=== PATIENT | female | born 1945 | race Caucasian/White ===

== ENCOUNTER → 2017-02-01 | Outpatient (CLI) | payer MEDICARE, OTHER | END | disposition home or self-care (01) | LOC: GMAB 10:54 | PROVIDERS: ATTEND Family Medicine | DX: I10 Essential (primary) hypertension (principal) ==

== ENCOUNTER → 2017-02-08 | Outpatient (CLI) | payer MEDICARE, OTHER ==
--- NOTE | 2017-02-09 08:29 | US ---
EXAM DESCRIPTION: Gall Bladder. Gallbladder ultrasound. CLINICAL HISTORY: RUQ PAIN COMPARISON: None. TECHNIQUE: Routine sonographic images of the right upper quadrant of the abdomen were acquired and submitted for review. FINDINGS: Liver: The liver is normal in size at 15.2 cm. It demonstrates diffusely increased echogenicity. It contains a 1.3 cm septated cyst in the right lobe. Bile ducts- Intrahepatic and extrahepatic bile ducts not dilated with common bile duct measuring 6 mm. Gallbladder: Normal without sludge, calculi, or polyps. The gallbladder wall is normal. Pancreas: The pancreas is not seen due to overlying bowel gas. Ascites: none IMPRESSION: 1. Normal sonographic appearance of the gallbladder. 2. Hepatic steatosis. 3. Septated cyst in the right hepatic lobe. Electronically signed by: Karthikeyan Porter MD 02/09/2017 8:28 AM CDT
== END | disposition home or self-care (01) ==
LOC: US 09:51
PROVIDERS: ATTEND Family Medicine
DX: K76.89 Other specified diseases of liver (principal); R10.33 Periumbilical pain; R10.13 Epigastric pain; K76.0 Fatty (change of) liver, not elsewhere classified

== ENCOUNTER → 2017-02-20 | Outpatient (CLI) | payer MEDICARE, OTHER ==
--- NOTE | 2017-02-20 10:35 | RAD ---
EXAM DESCRIPTION: Shoulder,Right 2 or More Views CLINICAL HISTORY: 71 years Female, PAIN IMPRESSION: 4 views of the right shoulder reveal degenerative change of the acromioclavicular joint with osteophyte formation. Degenerative change along the inferior margin of the glenohumeral joint. Small osteophytes noted along the margin of the greater tuberosity which can be seen in setting of rotator cuff tear. No fracture noted on today's study. No dislocation. Electronically signed by: Terry Barrios MD 02/20/2017 10:34 AM CDT
== END | disposition home or self-care (01) ==
LOC: RAD 09:41
PROVIDERS: ATTEND Orthopaedic Surgery
DX: M25.511 Pain in right shoulder (principal)

== ENCOUNTER → 2018-02-05 | Outpatient (CLI) | payer MEDICARE, OTHER | LOC: GMAB 11:52 | PROVIDERS: ATTEND Family Medicine | DX: I10 Essential (primary) hypertension (principal) ==

== ENCOUNTER → 2018-03-09 | Outpatient (CLI) | payer MEDICARE, OTHER ==
--- NOTE | 2018-03-12 08:20 | US ---
THYROID ULTRASOUND CLINICAL INFORMATION: Abnormal thyroid findings. TECHNIQUE: Standard transcutaneous scanning, two-dimensional and Doppler modes. Attending radiologist study due to patient body habitus. COMPARISON: None. Baseline study. FINDINGS: Thyroid size: Right 3.7 x 2.0 x 1.9 cm. Left 4.0 x 2.2 x 2.2 cm. Isthmus 0.23 cm in thickness. Texture: Heterogeneous Estimated total number of nodules >/=1 cm: 4 Number of spongiform nodules >/=2 cm not described below (TR1): 0 Number of mixed cystic and solid nodules >/=1.5 cm not described below (TR2): 0 Nodule #: 1 Maximum size: 1.5 cm; All dimensions 1.2 x 0.9 cm Location: right; upper Composition: solid/almost completely solid (2) Echogenicity: isoechoic (1) Shape: not [id number] (0) Margins: ill-defined (0) Echogenic foci: none (0) ACR TI-RADS total points: 3. ACR TI-RADS risk category: TR3 (3 points) ACR TI-RADS recommendation: Follow-up ultrasound in 1 year Nodule #: 2 Maximum size: 1.37 cm; All dimensions 1.3 x 1.2 cm Location: right; mid Composition: solid/almost completely solid (2) Echogenicity: very hypoechoic (3) Shape: not pjjpzo-jgre-jkrg (0) Margins: smooth (0) Echogenic foci: none (0) ACR TI-RADS total points: 5. ACR TI-RADS risk category: TR4 (4-6 points) ACR TI-RADS recommendation: Ultrasound-guided fine needle aspiration Nodule #: 3 Maximum size: 1.3 cm; All dimensions 1.0 x 0.8 cm Location: left; lower Composition: solid/almost completely solid (2) Echogenicity: hypoechoic (2) Shape: not irixjh-ocfh-dehn (0) Margins: ill-defined (0) Echogenic foci: none (0) ACR TI-RADS total points: 4. ACR TI-RADS risk category: TR4 (4-6 points) ACR TI-RADS recommendation: Follow-up ultrasound in 1 year Nodule #: 4 Maximum size: 1.7 cm; All dimensions 1.5 x 1.2 cm Location: left; upper Composition: solid/almost completely solid (2) Echogenicity: hypoechoic (2) Shape: not mccqsd-xane-kbrc (0) Margins: smooth (0) Echogenic foci: none (0) ACR TI-RADS total points: 4. ACR TI-RADS risk category: TR4 (4-6 points) ACR TI-RADS recommendation: Ultrasound-guided fine needle aspiration No distinct solid mass or cyst, calcification parenchymal edema or abnormal vascularity in the soft tissues around the thyroid gland. IMPRESSION: 1. Solid hypoechoic 1.7 cm nodule (#4) in the left upper thyroid lobe is in ACR TI RADS risk category TR 4. Due to size and risk category, ultrasound-guided fine-needle aspiration sampling is recommended. Please see below.* 2. Other bilateral thyroid nodules (numbers 1, 2, and 3) are in ACR TI-RADS risk categories TR 4 and TR 3. Due to size and risk category, one year ultrasound follow-up is recommended. 3. No distinct solid mass or cyst, calcification parenchymal edema or abnormal vascularity in the soft tissues around the thyroid gland. *ACR TI-RADS recommendations: TR5 (>/=7 points) - FNA if >/=1 cm, follow-up if 0.5 - 0.9 cm every year for 5 years TR4 (4-6 points) - FNA if >/=1.5 cm, follow-up if 1 - 1.4 cm in 1, 2, 3 and 5 years TR3 (3 points) - FNA if >/=2.5 cm, follow -up if 1.5 - 2.4 cm in 1, 3 and 5 years TR2 (2 points) and TR1 (0 points) - No FNA or follow-up * ACR TI-RADS recommends that no more than two nodules with the highest ACR TI-RADS total point should be biopsied and no more than four nodules should be followed. Electronically signed by: Orville Blair MD 03/12/2018 8:18 AM CDT
== END ==
LOC: US 12:57
PROVIDERS: ATTEND Family Medicine
DX: R94.7 Abnormal results of other endocrine function studies (principal); E04.1 Nontoxic single thyroid nodule

== ENCOUNTER → 2018-04-02 | Outpatient (CLI) | payer MEDICARE, OTHER | LOC: LAB.O 11:18 | PROVIDERS: ATTEND Otolaryngology Otolaryngology/Facial Plastic Surgery | DX: E04.1 Nontoxic single thyroid nodule (principal) ==

== ENCOUNTER 2018-12-27 17:09 | Inpatient (IN) | payer MEDICARE, OTHER ==
[2018-12-27] MEDS ORDERED: IBUPROFEN 200 MG TAB PO ONE (17:43)
[2018-12-27] MEDS ORDERED: METOPROLOL SUCCINATE XL 50 MG TAB PO ONE (17:43)
[2018-12-27] MEDS ORDERED: amLODIPine BESYLATE 5 MG TAB PO ONE (17:43)
[2018-12-27] MEDS ORDERED: IPRATROPIUM/ALBUTEROL 3 ML VIAL NEB ONE (17:43)
[2018-12-27] MEDS ORDERED: CETIRIZINE HCL 10 MG TAB PO ONE (17:44)
[2018-12-27] MEDS ORDERED: OSELTAMIVIR 75 MG CAP PO ONE (17:56)
[2018-12-27] MEDS ORDERED: methylPREDNISolone SODIUM SUC 40 MG/ML VIAL IV ONE (18:37)
[2018-12-27] MEDS ORDERED: cefTRIAXone SODIUM 1 GM in SODIUM CHL 0.9% 50ML MIN-BAG+ 50 ML IVPB ONE (18:37)
[2018-12-27] MEDS ORDERED: AZITHROMYCIN IV 500 MG in SODIUM CHLORIDE 0.9% 250ML 250 ML IVPB ONE (18:37)
[2018-12-27] MEDS ORDERED: POTASSIUM CHLORIDE ELIXIR 20 MEQ/15 ML UD PO ONE (18:38)
[2018-12-27] MEDS ORDERED: AZITHROMYCIN IV 500 MG VIAL IVPB ONE (18:54)
[2018-12-27] MEDS ORDERED: SODIUM CHL 0.9% 50ML MIN-BAG+ 50 ML IVPB ONE (18:54)
[2018-12-27] MEDS ORDERED: cefTRIAXone SODIUM 1 GM VIAL ONE (18:54)
[2018-12-27] MEDS ORDERED: SODIUM CHLORIDE 0.9% 250ML 250 ML ONE (18:55)
--- NOTE | 2018-12-27 19:07 | RAD ---
EXAM DESCRIPTION: Chest,1 View CLINICAL HISTORY: hypoxia, fever COMPARISON: Chest radiograph dated June 18, 2018 TECHNIQUE: Single upright portable frontal view the chest FINDINGS: Cardiac silhouette shows cardiomegaly with borderline central pulmonary vascular congestion an prominent interstitial markings bilaterally. New hazy opacities in the right upper lobe and left retrocardiac region may represent early pulmonary edema versus infectious/inflammatory processes such as pneumonia. Bilateral costophrenic angles are sharp. No pneumothorax. No acute osseous abnormality. IMPRESSION: 1. Cardiomegaly with borderline central pulmonary vascular congestion and prominent interstitial markings bilaterally. New hazy opacities in the right upper lobe and left retrocardiac region may represent early pulmonary edema versus infectious/inflammatory processes such as pneumonia. Electronically signed by: Vu Morales MD 12/27/2018 7:[address] [facility]
--- NOTE | 2018-12-27 19:18 | ED.PDOC ---
History of Present Illness - General Chief Complaint: Respiratory Problem Stated Complaint: cough, congestion Time Seen by Provider: 12/27/18 17:19 Source: patient Exam Limitations: no limitations - History of Present Illness Initial Comments: The patient is a 73-year-old female presenting to the emergency room with shortness of breath, fever and cough for the last day and a half. She is found to be down around 84% on room air with EMS and have a markedly elevated blood pressure 220/120. The patient admits that she did not take her blood pressure medicines this morning. She does feel short of breath. She does have a mild sore throat and has had a headache and body aches. She does have multiple sick contacts in the form of her grandchildren. No history of any known COPD issues. She denies any definite heart issues but she does have very significant hypertension. She does have audible wheezing. Moderate increased work of breathing. She is febrile and mentation appears to be a little bit slow. She is alert and oriented 4. Timing/Duration: 24 hours Severity: moderate Improving Factors: nothing Worsening Factors: nothing Associated Symptoms: cough, diaphoresis, fever/chills, headaches, malaise, shortness of breath - mild Allergies/Adverse Reactions: Allergies NO KNOWN ALLERGY Allergy (Verified 10/12/16 11:30) Home Medications: Ambulatory Orders Amlodipine Besylate 10 mg PO DAILY 08/20/13 Esomeprazole Magnesium [Nexium] 40 mg PO DAILY 08/20/13 Metoprolol Succinate [Metoprolol Succinate ER] 100 mg PO DAILY 08/20/13 Raloxifene HCl [Evista] 60 mg PO DAILY 08/20/13 Ramipril [Altace] 10 mg PO BID 08/20/13 Venlafaxine Xr [Effexor Xr] 75 mg PO DAILY 08/20/13 Ondansetron HCl [Zofran] 4 mg PO Q6HR #10 tab 10/12/16 Review of Systems - Review of Systems Constitutional: States: chills, diaphoresis, fever, malaise, weakness EENTM: States: nose congestion, throat pain Respiratory: States: cough, short of breath - mild Cardiology: States: no symptoms reported Gastrointestinal/Abdominal: States: no symptoms reported Genitourinary: States: no symptoms reported Musculoskeletal: States: no symptoms reported Skin: States: no symptoms reported Neurological: States: headache Endocrine: States: no symptoms reported All other Systems: No Change from Baseline Past Medical History (General) - Patient Medical History Hx Stroke: No Hx Cardiac Disorders: - cholesterol Hx Congestive Heart Failure: No Hx Hypertension: Yes Hx Diabetes: No Hx Gastroesophageal Reflux: Yes Hx Cancer: No Hx Hepatitis C: No Hx MRSA: No Surgical History: no surgical history - Vaccination History Hx Influenza Vaccination: No Hx Pneumococcal Vaccination: Yes - Social History Hx Tobacco Use: No Hx Chewing Tobacco Use: No Hx Physical Abuse: No Hx Emotional Abuse: No Hx Suspected Abuse: No - Female History Patient : No Family Medical History - Family History Mother Sister Hx Family Cancer: Yes - BOTH MOTHER AND SISTER FROM OVARIAN CANCER. Physical Exam - Physical Exam General Appearance: Alert, Ill Appearing, Other - mildly diaphoretic Eye Exam: bilateral normal Ears, Nose, Throat: hearing grossly normal, nasal congestion, pharyngeal erythema Neck: full range of motion, supple Respiratory: respiratory distress - mild, accessory muscle use, rales, rhonchi, wheezing Cardiovascular/Chest: normal peripheral pulses, regular rate, rhythm, no edema Peripheral Pulses: radial,right: 2+, radial,left: 2+, dorsalis pedis,right: 2+, dorsalis pedis,left: 2+ Gastrointestinal/Abdominal: non tender, soft Rectal Exam: deferred Back Exam: no CVA tenderness, no vertebral tenderness Extremity: non-tender, normal inspection, no pedal edema, normal capillary refill Neurologic: shop hand II-XII nml as tested, alert, oriented x 3 Skin Exam: diaphoresis - mild Comments: Vital Signs - 24 hr 12/27/18 12/27/18 12/27/18 17:10 17:50 17:59 Temperature 99.6 F Pulse Rate 112 H Pulse Rate [ 71 left brachial] Respiratory 24 24 20 Rate Blood Pressure 121/78 [left brachial] O2 Sat by Pulse 99 99 Oximetry 12/27/18 12/27/18 12/27/18 18:00 18:30 19:02 Temperature 102.8 F H 102.5 F H Pulse Rate Pulse Rate [ 115 H 93 H left brachial] Respiratory 24 20 Rate Blood Pressure 174/95 182/77 [left brachial] O2 Sat by Pulse 93 L 97 Oximetry Progress - Progress Progress: 12/27/18 19:20 the patient's a 73-year-old female presenting to the emergency room with what appears to be pneumonia with associated hypoxia. Initial breathing treatment does not seem to help much. She has hypoxic and does require almost 3 L to maintain oxygen saturations greater than 90%. Blood cultures have been performed. She is receiving Rocephin and azithromycin and Tamiflu. She is additionally received a dose of Solu-Medrol and Motrin. Admit for continued care for pneumonia. Chest x-ray is consistent with pneumonia. The patient was in hypertensive urgency upon arrival and did receive some of her home medications which has brought her blood pressure down to a more normal range. This will need to be followed as well. - Results/Orders Results/Orders: Laboratory Tests 12/27/18 12/27/18 17:49 17:49 WBC 10.4 RBC 4.31 Hgb 13.7 Hct 40.5 MCV 94.0 MCH 31.8 H MCHC 33.8 RDW 12.9 Plt Count 204 MPV 8.0 Absolute Neuts (auto) 9.70 H Absolute Lymphs (auto) 0.20 L Absolute Monos (auto) 0.50 Absolute Eos (auto) 0.00 Absolute Basos (auto) 0.00 Neutrophils % 92.6 H Lymphocytes % 2.1 L Monocytes % 5.1 Eosinophils % 0.2 L Basophils % 0.0 Sodium 136 Potassium 3.1 L Chloride 98 L Carbon Dioxide 27 Anion Gap 14.1 BUN 21 H Creatinine 0.82 BUN/Creatinine Ratio 25.6 H Random Glucose 154 H Serum Osmolality 278.0 Calcium 8.9 Total Bilirubin 1.3 H AST 20 ALT 13 Alkaline Phosphatase 85 Creatine Kinase 148 H CK-MB (CK-2) 1.5 CK-MB (CK-2) % 1.01 Troponin I 0.05 B-Natriuretic Peptide 133.0 H Serum Total Protein 7.8 Albumin 3.6 Globulin 4.2 H Albumin/Globulin Ratio 0.9 L influenza was negative EKG shows poor R-wave progression. LVH. Sinus tachycardia at [address] segment or T-wave changes consistent with acute ischemia. Normal axis. Departure - Departure Clinical Impression: Hypertensive urgency Pneumonia Qualifiers: Pneumonia type: due to unspecified organism Laterality: bilateral Lung location: unspecified part of lung Qualified Code(s): J18.9 - Pneumonia, unspecified organism Disposition: Admit Patient Condition: Serious Departure Forms: ED Discharge - Pt. Copy, Patient Portal Self Enrollment Referrals: Dimitry De Santiago MD [Primary Care Provider] - 1-2 Weeks Home Medications: Ambulatory Orders Amlodipine Besylate 10 mg PO DAILY 08/20/13 Esomeprazole Magnesium [Nexium] 40 mg PO DAILY 08/20/13 Metoprolol Succinate [Metoprolol Succinate ER] 100 mg PO DAILY 08/20/13 Raloxifene HCl [Evista] 60 mg PO DAILY 08/20/13 Ramipril [Altace] 10 mg PO BID 08/20/13 Venlafaxine Xr [Effexor Xr] 75 mg PO DAILY 08/20/13 Ondansetron HCl [Zofran] 4 mg PO Q6HR #10 tab 10/12/16 Decision To Admit - Decistion To Admit Decision to Admit Reason: Medical Nature Decision to Admit Date: 12/27/18 Decision to Admit Time: 19:22
--- NOTE | 2018-12-27 19:33 | HP ---
SUPERVISING PHYSICIAN: Adrian Nelson MD CHIEF COMPLAINT: Coughing with upper respiratory symptoms. HISTORY OF PRESENT ILLNESS: This is a 73 year-old female patient that had 3 to 4 days of coughing, shortness of breath and low grade fever. She said she felt totally run down and was taking some vxki-yfj-ewvcpuh cough medication. She has no significant history of any lung diseases. She came to the Emergency Room and her oxygen saturations were found to be around 84% on room air. She also had a markedly elevated blood pressure at 220/120. She had not taken her blood pressure that day. She has also had a headache and body aches. She recently went to visit her grandchildren in [place] and they have been sick. She was not sure if they had had the flu or not, she knew they had been sick. In the Emergency Room, her temperature was initially found to be 99.6 but shortly thereafter it was 102.8. Her heart rate was 115. After receiving her blood pressure medicine, her blood pressure came down to 174.95. Her respiratory rate was elevated at 24 and she her o2 saturations were 93% ON 3 1/2 liters nasal cannula. Laboratory was obtained and her sodium was 136, potassium 3.1, chloride 98, carbon dioxide 27, BUN 21, creatinine 0.82, glucose 154, total bilateral 1.3, creatinine kinase 148, BNP 133. WBCs 10,400 with a left shift from differential. Hemoglobin 13.7, hematocrit 40.5. Blood cultures were drawn and flu swab was performed. Her influenza A and B by PCR was negative. Chest x-ray showed cardiomegaly with borderline central pulmonary vascular congestion and prominent interstitial markings bilaterally. New hazy opacities in the right upper lobe and left retrocardiac region may represent early pulmonary edema versus infectious/inflammatory processes such as pneumonia. She was given potassium supplementation in addition to several nebulizer treatments. She still remained hypoxic unless she had 02 on. She was also given some Solu- Medrol as well as started on azithromycin and ceftriaxone. Tamiflu was given as well as judicious IV fluids. I was called for admission to the hospital. PAST MEDICAL HISTORY: 1. Seasonal allergies. 2. Gastroesophageal reflux disease. 3. Hyperlipidemia. 4. Hypertension. 5. Esophageal strictures. 6. Obstructive sleep apnea utilizing CPAP machine at night. PAST SURGICAL HISTORY: 1. Cataract removal. 2. Bladder suspension. CURRENT MEDICATIONS: ALLERGIES: No known drug allergies. CURRENT MEDICATIONS: Per the EMR and awaiting verification. SOCIAL HISTORY: She is . She lives in [place]. She denies smoking, ETOH or illicit drug use. REVIEW OF SYSTEMS: GENERAL: Positive for fever, fatigue. Negative for weight changes. HEENT: Positive for nasal congestion and mild throat pain. Negative for vision changes or ear problems. CHEST: Positive for coughing, shortness of breath and wheezing. CARDIAC: Negative for cp, palpitations, tachycardia. GI: Negative for nausea, vomiting, diarrhea and constipation. : Negative for hematuria, polyuria, dysuria. MUSCULOSKELETAL: Positive for myalgias. Negative for arthralgias, negative for lesions or rashes. NEUROLOGICAL: Positive for headaches, negative for seizures or dizziness. PHYSICAL EXAMINATION: VITAL SIGNS: Temperature 102.5, heart rate 94, blood pressure 164/80, respiratory rate 22. 02 saturation 93%. GENERAL: This is a 73 year-old female patient lying in her hospital bed. She is in mild respiratory distress. HEENT: Normocephalic and atraumatic. Pupils are equal and reactive. Oropharynx is clear. NECK: Supple without mass. CHEST: Scattered rhonchi throughout with expiratory wheezing in the apices, diminished at the bases. She is mildly tachypneic and she has to speak in short phrases due to her shortness of breath. There is equal rise and fall of the chest with inspiration and expiration. CARDIOVASCULAR: Regular rate and rhythm. ABDOMEN: Soft, nondistended, nondistended. Bowel sounds are positive. EXTREMITIES: No cyanosis, clubbing, or edema. NEUROLOGIC: She is awake, alert, and oriented x3. Cranial nerves II through XII are grossly intact. SKIN: Warm and dry. LABORATORY/FILMS: As per the history of present illness. ASSESSMENT: 1. Sepsis secondary to bilateral pneumonia with an admitting temperature of 102.8, heart rate of 115, respiratory rate 24 and 02 saturation of 84% on room air. 2. Hypobilirubinemia with no history. 3. Hypertension, stable on medication. 4. Gastroesophageal reflux disease. 5. History of esophageal strictures. 6. Hyperlipidemia. 7. Seasonal allergies. PLAN: We will admit the patient to the hospital. I have initiated the pneumonia guidelines including aggressive pulmonary hygiene. I have also done an IV steroid taper. We will transition her over to oral steroids. Also continued her Rocephin and azithromycin. I have ordered Mucinex as well as Tamiflu daily. Will repeat her lab and chest x-ray in the morning. I will restart her home medications as soon as they have been verified. She will be on Lovenox for DVT prophylaxis and PPI for ulcer prophylaxis. We will continue to monitor her closely and follow as needed. #[id number] [facility]
[2018-12-27] MEDS ORDERED: TEMAZEPAM 15 MG CAP PO PRN (20:38)
[2018-12-27] MEDS ORDERED: ACETAMINOPHEN 325 MG TAB PO PRN (20:38)
[2018-12-27] MEDS ORDERED: ALBUTEROL SULFATE 2.5 MG/3 ML VIAL NEB PRN (20:38)
[2018-12-27] MEDS ORDERED: IV SET AND CAP CHANGE INJ INJ SCH (21:00)
[2018-12-27] MEDS ORDERED: methylPREDNISolone SODIUM SUC 125 MG/2 ML VIAL IV ONE (21:41)
[2018-12-27] MEDS: ENOXAPARIN SODIUM 40 MG/0.4 ML SYG SUBCU SCH (21:52)
[2018-12-27] MEDS: SODIUM CHLORIDE 0.9% (FLUSH) 10 ML SYG IV SCH (21:53)
[2018-12-27] MEDS: guaiFENesin ER TAB 600 MG TAB PO SCH (21:53)
[2018-12-28] MEDS ORDERED: methylPREDNISolone SODIUM SUC 125 MG/2 ML VIAL IV SCH (06:00)
[2018-12-28] MEDS: PANTOPRAZOLE SODIUM IV 40 MG VIAL IV SCH (06:06)
--- NOTE | 2018-12-28 07:09 | RAD ---
EXAM DESCRIPTION: Chest,2 Views CLINICAL HISTORY: Pneumonia COMPARISON: December 27, 2018 FINDINGS: Again seen is some patchy alveolar opacity in the right upper lung, unchanged from yesterday's exam. Heart size is at the upper limits of normal range, also stable. No new abnormality or other significant interval change. IMPRESSION: Pneumonia involving a portion of the right upper lung, unchanged from yesterday. No new abnormality. Electronically signed by: Gaurav Vigil MD 12/28/2018 7:07 AM [facility]
[2018-12-28] MEDS ORDERED: IPRATROPIUM/ALBUTEROL 3 ML VIAL NEB ONE (08:28)
[2018-12-28] MEDS: IPRATROPIUM/ALBUTEROL 3 ML VIAL INH SCH ×4 (08:40→21:25)
[2018-12-28] MEDS ORDERED: SODIUM CHL 0.9% 50ML MIN-BAG+ 50 ML IVPB ONE ×2 (08:56→09:28)
[2018-12-28] MEDS ORDERED: cefTRIAXone SODIUM 1 GM VIAL ONE (08:56)
[2018-12-28] MEDS ORDERED: SODIUM CHLORIDE 0.9% 250ML 0 ML ONE (08:56)
[2018-12-28] MEDS ORDERED: AZITHROMYCIN IV 500 MG VIAL IVPB ONE ×2 (08:57→09:29)
[2018-12-28] MEDS: guaiFENesin ER TAB 600 MG TAB PO SCH ×2 (09:24→21:24)
[2018-12-28] MEDS: cefTRIAXone SODIUM 1 GM in SODIUM CHL 0.9% 50ML MIN-BAG+ 50 ML IVPB SCH (09:24)
[2018-12-28] MEDS: SODIUM CHLORIDE 0.9% (FLUSH) 10 ML SYG IV SCH ×2 (09:24→21:25)
[2018-12-28] MEDS: OSELTAMIVIR 75 MG CAP PO SCH (09:24)
[2018-12-28] MEDS ORDERED: SODIUM CHLORIDE 0.9% 250ML 250 ML ONE (09:29)
[2018-12-28] MEDS: AZITHROMYCIN IV 500 MG in SODIUM CHLORIDE 0.9% 250ML 250 ML IVPB SCH (09:39)
[2018-12-28] MEDS ORDERED: methylPREDNISolone SODIUM SUC 40 MG/ML VIAL IV SCH (12:00)
[2018-12-28] MEDS: SODIUM CHLORIDE 0.9% (FLUSH) 10 ML SYG IV PRN (13:46)
[2018-12-28] MEDS: ENOXAPARIN SODIUM 40 MG/0.4 ML SYG SUBCU SCH (21:24)
--- NOTE | 2018-12-28 21:40 | PN ---
DATE: 12/28/18 SUPERVISING PHYSICIAN: Adrian Nelson M.D. SUBJECTIVE: The patient is sitting up in her bed. She is feeling much better than she did yesterday, but she is still quite weak and short of breath. Denies any chest pain, nausea, vomiting, diarrhea or constipation. Her 2 daughters have just gotten here from [place] and I went over her status as well as the plan of care. OBJECTIVE: VITAL SIGNS: Temperature 97.6, blood pressure 163/87, heart rate 77, respiratory rate 20 to 22, O2 sat is 94% on 2 liters nasal cannula. RESPIRATORY: Scattered rhonchi throughout, diminished breath sounds at the bases. She does have some expiratory wheezing in the left upper lung. She is slightly tachypneic and has to speak in short phrases. CARDIAC: Regular rate and rhythm. GASTROINTESTINAL: Abdomen is soft, nondistended, non-tender. Bowel sounds are positive. NEUROLOGIC: She is awake, alert and oriented times three. LABORATORY: WBCs are 11,200 with left shift on differential. Hemoglobin 13.3, hematocrit 39.5. Metabolic panel is unremarkable. Preliminary blood cultures show no growth after 24 hours. Sputum culture and urine culture are both pending. Chest x-ray per radiology interpretation showed pneumonia involving portion of the right upper lung unchanged from yesterday. No new abnormality. All other labs and films have been reviewed via the EMR. ASSESSMENT: 1. Sepsis secondary to bilateral pneumonia with an admitting temperature of 102.8, heart rate of 115, respiratory rate 24 and 02 saturation of 84% on room air. 2. Hypobilirubinemia that is normalized with fluids. 3. Hypertension, stable on medication. 4. Gastroesophageal reflux disease. 5. History of esophageal strictures. 6. Hyperlipidemia. 7. Seasonal allergies. PLAN: We will continue present supportive care. I have tapered her IV steroids down and tomorrow she will be changed to p.o. prednisone. I have also started some Align as well as a chest x-ray and a CBC. I have encouraged her to get up and move around in the her room. Will also order ambulation by the nurses. We will continue to monitor closely and follow as needed. #[id number] [facility]
[2018-12-28] MEDS: MELATONIN 3 MG TAB PO PRN (22:18)
[2018-12-29] MEDS ORDERED: methylPREDNISolone SODIUM SUC 40 MG/ML VIAL IV ONE (06:00)
[2018-12-29] MEDS: PANTOPRAZOLE SODIUM IV 40 MG VIAL IV SCH (06:07)
--- NOTE | 2018-12-29 07:34 | RAD ---
EXAM DESCRIPTION: Chest,2 Views CLINICAL HISTORY: 73 years Female pna COMPARISON: Two-view chest 12/28/2018 TECHNIQUE: PA and lateral views of the chest are obtained. FINDINGS: Heart: The heart is normal in size and configuration. Vasculature: All there is mild tortuosity of the aorta. Hhe pulmonary vascularity is normal. Mediastinum: Unremarkable otherwise. No evidence of mass or adenopathy. Lungs: Focal alveolar opacification in the right upper lobe persists but is slightly improved. Pleural spaces: There are no pleural effusions. There are no pneumothoraces. Osseous structures: There is no evidence of acute fracture, osseous destruction or osteoblastic lesions. There are diffuse enthesopathic changes including a rolling pattern of ossification in the thoracic spine consistent with diffuse idiopathic skeletal hyperostosis (DISH). Degenerative changes are present in the shoulders. Tubes and catheters: None. Upper abdomen: No acute findings. Chest wall: Unremarkable. IMPRESSION: Focal alveolar opacification in the right upper lobe persists but is slightly improved. Short-term follow-up to resolution is recommended. Remainder of findings as described above. Electronically signed by: Hali Mckeon MD 12/29/2018 7:32 AM [facility]
[2018-12-29] MEDS ORDERED: SODIUM CHL 0.9% 50ML MIN-BAG+ 50 ML IVPB ONE (07:55)
[2018-12-29] MEDS ORDERED: cefTRIAXone SODIUM 1 GM VIAL ONE (07:56)
[2018-12-29] MEDS: IPRATROPIUM/ALBUTEROL 3 ML VIAL INH SCH ×4 (08:23→19:30)
[2018-12-29] MEDS: cefTRIAXone SODIUM 1 GM in SODIUM CHL 0.9% 50ML MIN-BAG+ 50 ML IVPB SCH (09:20)
[2018-12-29] MEDS: OSELTAMIVIR 75 MG CAP PO SCH (09:20)
[2018-12-29] MEDS: guaiFENesin ER TAB 600 MG TAB PO SCH ×2 (09:20→20:40)
[2018-12-29] MEDS: predniSONE 20 MG TAB PO SCH (09:20)
[2018-12-29] MEDS: amLODIPine BESYLATE 5 MG TAB PO SCH (09:29)
[2018-12-29] MEDS: FAMOTIDINE 20 MG TAB PO SCH (09:29)
[2018-12-29] MEDS: VENLAFAXINE XR 75 MG CAP PO SCH (09:29)
[2018-12-29] MEDS: SODIUM CHLORIDE 0.9% (FLUSH) 10 ML SYG IV SCH ×2 (09:30→20:41)
[2018-12-29] MEDS: NON-FORMULARY MEDICATION 1 EA MIS (Raloxifene Hcl [Evista] 60 MG) PO SCH (09:50)
[2018-12-29] MEDS ORDERED: SODIUM CHLORIDE 0.9% 250ML 250 ML ONE (10:11)
[2018-12-29] MEDS ORDERED: AZITHROMYCIN IV 500 MG VIAL IVPB ONE (10:12)
[2018-12-29] MEDS: AZITHROMYCIN IV 500 MG in SODIUM CHLORIDE 0.9% 250ML 250 ML IVPB SCH (10:19)
[2018-12-29] MEDS ORDERED: PROMETHAZINE W/CODEINE SYR 5 ML UD PO PRN (11:42)
--- NOTE | 2018-12-29 12:46 | PN ---
DATE: 12/29/18 SUPERVISING PHYSICIAN: Adrian Nelson M.D. SUBJECTIVE: The patient is sitting up in her bed. Complains of continued dry, hacking cough. She does not feels quite as good today as she did yesterday, but she feels much better than when she came in. She is still short of breath with any activity. Denies chest pain, nausea, vomiting, diarrhea or constipation. OBJECTIVE: VITAL SIGNS: Temperature 98.1, heart rate 82, blood pressure 170/88, respiratory rate 20, O2 sat is 92% on room air. RESPIRATORY: Diminished breath sounds throughout. She does have some scattered rhonchi. There is no wheezing. She is slightly tachypneic and has to speak in short phrases. CARDIAC: Regular rate and rhythm. GASTROINTESTINAL: Abdomen is soft, nondistended, non-tender. Bowel sounds are positive. NEUROLOGIC: She is awake, alert and oriented times three. LABORATORY: WBCs are 10.7 with hemoglobin 11.2, hematocrit 33.7. She does have a left shift on her differential. CMP is unremarkable with the exception of blood sugars are slightly elevated at 176. She is on a steroid taper. Urine culture and sputum culture are pending. Preliminary blood cultures show no growth after 24 hours. Chest x-ray shows focal alveolar opacification in the right upper lobe that persists, but is slightly improved. Short term followup is recommended. All other labs and films have been reviewed via the EMR. ASSESSMENT: 1. Sepsis secondary to bilateral pneumonia with an admitting temperature of 102.8, heart rate of 115, respiratory rate 24 and 02 saturation of 84% on room air. 2. Hypobilirubinemia that is normalized with fluids. 3. Hypertension, stable on medication. 4. Gastroesophageal reflux disease. 5. History of esophageal strictures. 6. Hyperlipidemia. 7. Seasonal allergies. PLAN: We will continue present supportive care. I will call Dr. Nelson's office this morning and get clarification on her Metoprolol as her blood pressure is continues to be slightly elevated. She is not sure of the dosing. Her other home medications have been started. We are going to continue to monitor her cultures as they become available, but continue on her present antibiotic regimen. I have tapered her IV steroids to oral steroids today. I will repeat her lab and chest x-ray tomorrow. I have also ordered ambulation twice a day as she needs to get up and moving. Physical Therapy will be consulted Monday morning. I have also ordered some Promethazine with codeine for her cough. I recommended at least for the next 24 hours she wear oxygen when short of breath and at night. I have again stressed the importance of good pulmonary hygiene. Will continue to monitor closely and follow as needed. #[id number] [facility]
[2018-12-29] MEDS ORDERED: NON-FORMULARY MEDICATION 1 EA MIS (Valsartan-Hydrochlorothiazide [Valsartan/Hydrochlorothi PO SCH (13:30)
[2018-12-29] MEDS: VALSARTAN 80 MG TAB PO SCH (14:04)
[2018-12-29] MEDS: hydroCHLOROthiazide 12.5 MG CAP PO SCH (14:05)
[2018-12-29] MEDS: ENOXAPARIN SODIUM 40 MG/0.4 ML SYG SUBCU SCH (20:40)
[2018-12-29] MEDS ORDERED: ATORVASTATIN 20 MG TAB PO SCH (21:00)
[2018-12-29] MEDS: MELATONIN 3 MG TAB PO PRN (21:59)
[2018-12-29] MEDS: DOCUSATE SODIUM 100 MG CAP PO SCH (22:26)
[2018-12-30] MEDS: PANTOPRAZOLE SODIUM IV 40 MG VIAL IV SCH (06:03)
[2018-12-30] MEDS: SODIUM CHLORIDE 0.9% (FLUSH) 10 ML SYG IV PRN (06:04)
--- NOTE | 2018-12-30 06:18 | RAD ---
EXAM DESCRIPTION: Chest,2 Views CLINICAL HISTORY: 73 years Female pna COMPARISON: Two-view chest 12/29/2018 TECHNIQUE: PA and lateral views of the chest are obtained. FINDINGS: Heart: Mild cardiomegaly appears similar. Vasculature: The aorta is unremarkable with the exception of mild tortuosity.. The pulmonary vascularity is normal. Mediastinum: Unremarkable otherwise. No evidence of mass or adenopathy. Lungs: Since the study of the previous day there is been partial clearance of the alveolar opacification in the right upper lung suggesting improving atelectasis or pneumonia. Pleural spaces: There are no pleural effusions. There are no pneumothoraces. Osseous structures: There is no evidence of acute fracture, osseous destruction or osteoblastic lesions. Degenerative changes are present in the spine and shoulders. Tubes and catheters: None. Upper abdomen: No acute findings. Chest wall: Unremarkable. IMPRESSION: Since the study of the previous day there is been partial clearance of the alveolar opacification in the right upper lung suggesting improving atelectasis or pneumonia. Remainder of findings as described above. Electronically signed by: Hali Mckeon MD 12/30/2018 6:14 AM [facility]
[2018-12-30] MEDS ORDERED: cloNIDine HCL 0.1 MG TAB PO ONE (06:21)
[2018-12-30 07:32] VITALS: TEMP 97.7
[2018-12-30] MEDS ORDERED: SODIUM CHLORIDE 0.9% 250ML 250 ML ONE (07:38)
[2018-12-30] MEDS: NON-FORMULARY MEDICATION 1 EA MIS (Raloxifene Hcl [Evista] 60 MG) PO SCH (07:38)
[2018-12-30] MEDS ORDERED: SODIUM CHL 0.9% 50ML MIN-BAG+ 50 ML IVPB ONE (07:38)
[2018-12-30] MEDS ORDERED: cefTRIAXone SODIUM 1 GM VIAL ONE (07:39)
[2018-12-30] MEDS ORDERED: AZITHROMYCIN IV 500 MG VIAL IVPB ONE (07:40)
[2018-12-30] MEDS: IPRATROPIUM/ALBUTEROL 3 ML VIAL INH SCH ×2 (08:24→12:46)
[2018-12-30] MEDS: FAMOTIDINE 20 MG TAB PO SCH (08:52)
[2018-12-30] MEDS: VENLAFAXINE XR 75 MG CAP PO SCH (08:52)
[2018-12-30] MEDS: guaiFENesin ER TAB 600 MG TAB PO SCH (08:52)
[2018-12-30] MEDS: DOCUSATE SODIUM 100 MG CAP PO SCH (08:52)
[2018-12-30] MEDS: hydroCHLOROthiazide 12.5 MG CAP PO SCH (08:53)
[2018-12-30] MEDS: VALSARTAN 80 MG TAB PO SCH (08:54)
[2018-12-30] MEDS: OSELTAMIVIR 75 MG CAP PO SCH (08:55)
[2018-12-30] MEDS: predniSONE 20 MG TAB PO SCH (08:55)
[2018-12-30] MEDS: amLODIPine BESYLATE 5 MG TAB PO SCH (08:56)
[2018-12-30] MEDS: cefTRIAXone SODIUM 1 GM in SODIUM CHL 0.9% 50ML MIN-BAG+ 50 ML IVPB SCH (08:56)
[2018-12-30] MEDS: SODIUM CHLORIDE 0.9% (FLUSH) 10 ML SYG IV SCH (08:58)
[2018-12-30] MEDS ORDERED: POTASSIUM CHLORIDE 20 MEQ TAB PO ONE (09:29)
[2018-12-30] MEDS: AZITHROMYCIN IV 500 MG in SODIUM CHLORIDE 0.9% 250ML 250 ML IVPB SCH (10:02)
[2018-12-30] MEDS ORDERED: AZITHROMYCIN 250 MG TAB PO ONE (11:18)
[2018-12-30 11:23] VITALS: BP 174/87
[2018-12-30 12:50] VITALS: O2SAT 95
--- NOTE | 2018-12-30 20:41 | DS ---
SUPERVISING PHYSICIAN: Adrian Nelson M.D. DISCHARGE DIAGNOSIS: 1. Sepsis secondary to bilateral pneumonia with an admitting temperature of 102.8, heart rate of 115, respiratory rate 24 and 02 saturation of 84% on room air. 2. Hypobilirubinemia that is normalized with fluids. 3. Hypertension, stable on medication. 4. Gastroesophageal reflux disease. 5. History of esophageal strictures. 6. Hyperlipidemia. 7. Seasonal allergies. HISTORY OF PRESENT ILLNESS: This is a 73 year-old female patient that had 3 to 4 days of upper respiratory symptoms including coughing, shortness of breath and low grade fever. She had felt run down and had taken some [id number] medications. She has no significant history of any lung diseases, except she was exposed to second hand smoke from her smoking. She came to the Emergency Room with her O2 sats at 84% on room air. She also had a markedly elevated blood pressure at 220/120. She had not taken any of her blood pressure medicines that day. There was also some concerns later by her daughters that her pill planners had been filled incorrectly and that they were not sure she was taking her medications as prescribed. At any rate, she received some of her blood pressure medicine in the E. R. and her blood pressure came down to 174/95. Her respiratory rate was elevated at 24. Her O2 sats were 93% on 3.5 liters of oxygen via nasal cannula. Laboratory obtained showed sodium of 136, potassium 3.1, chloride 98, carbon dioxide 27, BUN 21, creatinine 0.82, glucose 154, total bilirubin 1.3, creatinine kinase 148, BNP 133. WBCs 10,400 with a left shift on her differential. Hemoglobin 13.7, hematocrit 40.5. Blood cultures were drawn and flu swab was performed. Her influenza A and B by PCR was negative. Chest x-ray showed cardiomegaly with borderline central pulmonary vascular congestion and prominent interstitial markings bilaterally with new hazy opacities in the right upper lobe and left retrocardiac region that may represent early pulmonary edema versus infectious/inflammatory processes such as pneumonia. She was given potassium supplementation in addition to several nebulizer treatments. They were unable to get the oxygen off of her as she remained hypoxic unless she had oxygen on. She was given some Solu-Medrol and started her on azithromycin and ceftriaxone. She received a dose of Tamiflu as well as judicious IV fluids. She was admitted to the hospital. HOSPITAL COURSE: Pneumonia guidelines were initiated that include good pulmonary hygiene and scheduled and p.r.n. nebulizer treatments. She also received several additional doses of IV steroids and they were tapered down and transitioned her to oral steroids. Her Rocephin and azithromycin were continued. She also received Mucinex as well as Tamiflu daily. She was given Lovenox for DVT prophylaxis and a PPI for ulcer prophylaxis. After her first 24 hours in the hospital she felt much better. She was encouraged to get up and ambulate around her room. Her daughters came to stay with her from [place] and felt like they were unsure as to her taking the correct dose of her routine medications as well as due to her weakness from this illness that she would do better going to one of their homes in [place] so they could watch her for a week or two after she is discharged. Her chest x-ray improved. Her labs stabilized, although she did have severe elevated blood pressures that required Clonidine. Her routine blood pressure medications were restarted. She is prescribed Valsartan plus Hydrochlorothiazide 320/12.5 daily and she also takes Amlodipine 10 mg daily. Her blood pressures slowly improved, although she still occasionally has an elevated systolic blood pressure in the 170s to 180s. She was encouraged to take her medications as scheduled and to have someone verify her dosing. And although her sputum and urine cultures have not been resulted, I will discharge her home today to stay with her daughters in [place]. If she stays until tomorrow, she will have to go home alone and she lives out at the [place]. I believe it would be better for her post discharge care to be monitored by her family. She will be discharged today in stable condition. LABORATORY: WBCs on admission were 10,400 with a slight rise in them to 11,200, and today are 10,600. Hemoglobin and hematocrit are stable at 11.5 and 34.5. She does have a left shift on her differential, but that has improved daily. Her electrolytes today were basically within normal limits with the exception of her potassium was slightly low at 3.2 and she received some oral supplementation. Her preliminary blood cultures show no growth after 48 hours but her urine and sputum culture are both pending. RADIOLOGY: Initial chest x-ray was as per the History of Present Illness. Today, the chest x-ray per radiology interpretation showed since the study of the previous day there has been partial clearance of the alveolar opacification in the right upper lobe suggesting improving atelectasis or pneumonia and the remainder of the findings are as described in the report. DISCHARGE PLAN: The patient will be discharged home in stable condition. She is to go with her daughters for the next 1 to 2 weeks, who live in [place]. She is to followup with her primary care physician, Dr. Nelson, when she gets back to [place]. After a lengthy discussion with the family, they would like to have an MRI of the brain as they are afraid their mother has displayed some early dementia symptoms. She will also need her medications verified with Dr. Nelson. She also may need home health for some time after she moves back to [place] to help with her medications and to monitor her somewhat more closely. She is to resume her previous diet and increase her activity as tolerated. She is to return to the E. R. or call Dr. Nelson's office for any problems or complications. DISCHARGE MEDICATIONS: 1. Venlafaxine. 2. Raloxifene. 3. Amlodipine. 4. Famotidine. 5. Lipitor. 6. Valsartan/Hydrochlorothiazide. 7. Azithromycin. 8. Cefdinir. 9. Guaifenesin. 10. Tamiflu. 11. Prednisone taper. 12. Promethazine with codeine cough syrup. 13. Albuterol sulfate nebulizer treatments. #[id number] [facility]
== END 2018-12-30 14:25 | disposition home or self-care (01) | DRG 871 ==
LOC: ER 17:09 → MS 19:31
PROVIDERS: ADMIT Nurse Practitioner Acute Care; ATTEND Nurse Practitioner Acute Care
DX: A41.9 Sepsis, unspecified organism (principal); J18.9 Pneumonia, unspecified organism; R09.02 Hypoxemia; I10 Essential (primary) hypertension; K21.9 Gastro-esophageal reflux disease without esophagitis; E78.5 Hyperlipidemia, unspecified; G47.33 Obstructive sleep apnea (adult) (pediatric); J30.2 Other seasonal allergic rhinitis; Z79.899 Other long term (current) drug therapy

== ENCOUNTER → 2019-07-16 | Outpatient (CLI) | payer MEDICARE, OTHER | LOC: GMAE 14:32 | PROVIDERS: ATTEND Family Medicine | DX: I10 Essential (primary) hypertension (principal) ==

== ENCOUNTER 2020-11-27 12:43 | Inpatient (IN) | payer MEDICARE, OTHER ==
--- NOTE | 2020-11-27 13:49 | RAD ---
EXAM: Chest,1 View INDICATION: 75 years Female, covid COMPARISON: 2 views of the chest 12/30/2018 FINDINGS: Single view of the chest was performed. Cardiomegaly and prominent or tortuous thoracic aorta, likely accentuated due to low lung volumes. Patchy bilateral peripheral groundglass pulmonary infiltrates. No pleural effusion. No pneumothorax. The osseous structures are intact. Unremarkable appearance of the visualized upper abdomen. IMPRESSION: 1. Patchy bilateral peripheral pulmonary infiltrates. Commonly reported imaging features of COVID-19 pneumonia are present. Other processes such as influenza pneumonia and organizing pneumonia, as can be seen with drug toxicity and connective tissue disease, can cause a similar imaging pattern. 2. Cardiomegaly. Electronically signed by: Ai Love MD 11/27/2020 1:48 PM [facility]
[2020-11-27] MEDS ORDERED: SODIUM CHLORIDE 0.9% 1000ML 1,000 ML IVS ONE (14:24)
[2020-11-27] MEDS ORDERED: DEXAMETHASONE INJ 10 MG/ML VIAL IV ONE (14:24)
[2020-11-27] MEDS ORDERED: PROMETHAZINE HCL INJ 25 MG in SODIUM CHLORIDE 0.9% 50ML 50 ML IVPB ONE (14:25)
[2020-11-27] MEDS ORDERED: AZITHROMYCIN IV 500 MG in SODIUM CHLORIDE 0.9% 250ML 250 ML IVPB ONE (14:25)
[2020-11-27] MEDS ORDERED: POTASSIUM CHLORIDE ELIXIR 20 MEQ/15 ML UD PO ONE (14:25)
[2020-11-27] MEDS ORDERED: cefTRIAXone SODIUM 1 GM in SODIUM CHL 0.9% 50ML MIN-BAG+ 50 ML IVPB ONE (14:25)
[2020-11-27] MEDS ORDERED: MAGNESIUM SULFATE PREMIX 2GM 2 GM in PREMIX BAG 1 BAG IVPB ONE (14:26)
[2020-11-27] MEDS ORDERED: amLODIPine BESYLATE 5 MG TAB PO ONE (14:35)
[2020-11-27] MEDS ORDERED: REMDESIVIR 200 MG in SODIUM CHLORIDE 0.9% 250ML 250 ML IVPB ONE (14:35)
[2020-11-27] MEDS ORDERED: VALSARTAN 80 MG TAB PO ONE (14:37)
[2020-11-27] MEDS ORDERED: SODIUM CHLORIDE 0.9% 1000ML 500 ML IVS ONE (14:39)
--- NOTE | 2020-11-27 14:44 | ED.PDOC ---
History of Present Illness - General Chief Complaint: Respiratory Problem Stated Complaint: SOB, nausea Time Seen by Provider: 11/27/20 12:47 Source: patient Exam Limitations: no limitations - History of Present Illness Initial Comments: The patient is a 75-year-old female presented to emergency room secondary to increased shortness of breath and achiness along with increased nausea over the last 2 days. Her was reporting some pulse oximetry readings overnight in the upper 80s. The patient has had increased cough and increased dyspnea with overexertion over the last few days. She has not been throwing up but her oral intake of liquids has decreased markedly secondary to nausea over the last couple of days. Also secondary to nausea she has not taken any of her blood pressure medications. Her blood pressures are in the 210s over 100s. She is not having any chest pain. No diarrhea. No fever. The patient was diagnosed with coronavirus 6 days ago and was given a monoclonal antibody 4 days ago. Oxygen saturations here range from 90 to 94% on room air with her not exerting herself. She does get significantly short of breath with exertion ho wever. Lung sheets show scattered rales and rhonchi. No swelling of the legs or palpable cords. No pain in the legs. Timing/Duration: unsure Severity: moderate Improving Factors: nothing Worsening Factors: nothing Associated Symptoms: cough, loss of appetite, malaise, nausea/vomiting, shortness of breath, weakness Allergies/Adverse Reactions: Allergies NO KNOWN ALLERGY Allergy (Verified 11/27/20 13:13) Home Medications: Ambulatory Orders Amlodipine Besylate 10 mg PO DAILY 08/20/13 Raloxifene HCl [Evista] 60 mg PO DAILY 08/20/13 Venlafaxine Xr [Effexor Xr] 75 mg PO DAILY 08/20/13 Atorvastatin Calcium [Lipitor] 40 mg PO DAILY 12/28/18 Famotidine [Pepcid] 20 mg PO DAILY 12/28/18 Valsartan-Hydrochlorothiazide [Valsartan/Hydrochlorothia 320-12.5 mg] 1 tab PO DAILY 12/29/18 Albuterol Sulfate Nebs [Proventil Nebs] 2.5 mg INH Q4H PRN #120 vial 12/30/18 Azithromycin [Zithromax Z-Rom] 250 mg PO DAILY #1 tab 12/30/18 Cefdinir [Omnicef] 300 mg PO BID #12 cap 12/30/18 Oseltamivir Capsule [Tamiflu] 75 mg PO DAILY #6 cap 12/30/18 Prednisone See Taper PO DAILY #30 tab 12/30/18 Promethazine W/Codeine Syr [Phenergan With Codeine Syrup] 5 ml PO Q4H PRN #4 oz 12/30/18 guaiFENesin ER TAB [Mucinex Tab] 600 mg PO BID tab 12/30/18 Review of Systems - Review of Systems Constitutional: States: malaise EENTM: States: no symptoms reported Respiratory: States: cough, short of breath Cardiology: States: no symptoms reported Gastrointestinal/Abdominal: States: nausea Musculoskeletal: States: no symptoms reported Skin: States: no symptoms reported Neurological: States: no symptoms reported Endocrine: States: no symptoms reported All other Systems: No Change from Baseline Past Medical History (General) - Patient Medical History Hx Seizures: No Hx Stroke: No Hx Asthma: No Hx of COPD: No Hx Cardiac Disorders: No Hx Congestive Heart Failure: No Hx Pacemaker: No Hx Hypertension: Yes Hx Diabetes: No Hx Gastroesophageal Reflux: No Hx Renal Disease: No Hx Cancer: No Hx of HIV: No Hx Hepatitis C: No Hx MRSA: No - Vaccination History Hx Tetanus, Diphtheria Vaccination: No Hx Influenza Vaccination: No Hx Pneumococcal Vaccination: Yes - Social History Hx Tobacco Use: No Hx Chewing Tobacco Use: No Hx Alcohol Use: Yes Hx Substance Use: No Hx Physical Abuse: No Hx Emotional Abuse: No Hx Suspected Abuse: No - Female History Patient : No Family Medical History - Family History Mother Sister Family History: No Known Hx Family Cancer: Yes - BOTH MOTHER AND SISTER FROM OVARIAN CANCER. Physical Exam - Physical Exam General Appearance: Alert, Frail, Ill Appearing Eye Exam: bilateral normal Ears, Nose, Throat: hearing grossly normal, normal pharynx Neck: full range of motion, supple Respiratory: no respiratory distress, no accessory muscle use, rales, rhonchi Cardiovascular/Chest: normal peripheral pulses, regular rate, rhythm, no edema Peripheral Pulses: radial,right: 2+, radial,left: 2+ Gastrointestinal/Abdominal: non tender, soft Rectal Exam: deferred Back Exam: no CVA tenderness, no vertebral tenderness Extremity: non-tender, normal inspection, no pedal edema, normal capillary refill Neurologic: machine stamper II-XII nml as tested, alert, normal mood/affect, oriented x 3 Skin Exam: normal color Comments: Vital Signs - 24 hr 11/27/20 11/27/20 13:05 13:13 Temperature 99.8 F H Pulse Rate [ 76 Left Radial] Respiratory 20 20 Rate Blood Pressure 213/104 [Right Arm] O2 Sat by Pulse 93 L Oximetry Progress - Progress Progress: 11/27/20 14:47 Patient is a 75-year-old female presented emergency room secondary to worsening coronavirus infection. Based on x-ray and increased dyspnea, the patient does have coronavirus induced pneumonia. She is being brought in the hospital for monitoring and treatment of this. We are starting azithromycin, Rocephin, dexamethasone and remdesivir for this. Additionally she does have significant hypokalemia for which she is receiving supplemental potassium as well as low magnesium for which she is receiving supplemental magnesium. The patient does have markedly elevated blood pressures, mostly due to noncompliance with blood pressure medications. For this reason she has been restarted on her home medications. She will need to be rechecked in a couple of hours to make sure blood pressures are correcting. I do not believe that the uncontrolled hypertension is the primary cause of her symptoms. The patient does have a history of noncompliance with her hypertension medications. She has been warned that this can increase her risk of deteriorating with coronavirus. The patient does have a significantly elevated D-dimer. I believe she is fairly low probability for having had a pulmonary embolus at this point. She has been placed on prophylactic dose of Lovenox for now. Obviously if the picture changes then additional work-up and step up therapy would be warranted. Admit for continued care. elyse lópez [id number] 11/27/20 14:49 - Results/Orders Results/Orders: Chest x-ray is consistent with coronavirus. Laboratory Tests 11/27/20 11/27/20 11/27/20 13:20 13:20 13:20 WBC 7.2 RBC 3.83 L Hgb 11.8 L Hct 34.8 L MCV 90.8 MCH 30.9 MCHC 34.0 RDW 12.3 Plt Count 309 MPV 7.6 Absolute Neuts (auto) 6.00 Absolute Lymphs (auto) 0.40 L Absolute Monos (auto) 0.70 Absolute Eos (auto) 0.00 Absolute Basos (auto) 0.00 Neutrophils % 83.5 H Lymphocytes % 5.7 L Monocytes % 10.2 H Eosinophils % 0.1 L Basophils % 0.5 PT INR PTT (SP) Fibrinogen D-Dimer, Quantitative Sodium 139 Potassium 2.7 L Chloride 101 Carbon Dioxide 28 Anion Gap 12.7 BUN 10 Creatinine 0.71 BUN/Creatinine Ratio 14.1 Random Glucose 128 H Serum Osmolality 278.2 Lactic Acid Calcium 8.5 Magnesium Ferritin 325.1 H Total Bilirubin 0.8 AST 23 ALT 17 Alkaline Phosphatase 58 LD Total Creatine Kinase 24 L CK-MB (CK-2) 0.8 CK-MB (CK-2) % Not Reportable Troponin I 0.02 C-Reactive Protein B-Natriuretic Peptide 356.0 H* Serum Total Protein 6.7 Albumin 3.0 L Globulin 3.7 H Albumin/Globulin Ratio 0.8 L 11/27/20 11/27/20 11/27/20 13:20 13:20 13:20 WBC RBC Hgb Hct MCV MCH MCHC RDW Plt Count MPV Absolute Neuts (auto) Absolute Lymphs (auto) Absolute Monos (auto) Absolute Eos (auto) Absolute Basos (auto) Neutrophils % Lymphocytes % Monocytes % Eosinophils % Basophils % PT 10.1 INR 1.02 PTT (SP) 27.4 Fibrinogen 554 H D-Dimer, Quantitative 3070.0 H* Sodium Potassium Chloride Carbon Dioxide Anion Gap BUN Creatinine BUN/Creatinine Ratio Random Glucose Serum Osmolality Lactic Acid 1.4 Calcium Magnesium 1.6 L Ferritin Total Bilirubin AST ALT Alkaline Phosphatase LD Total 240 H Creatine Kinase CK-MB (CK-2) CK-MB (CK-2) % Troponin I C-Reactive Protein 11.2 H* B-Natriuretic Peptide Serum Total Protein Albumin Globulin Albumin/Globulin Ratio - EKG/XRAY/CT CT Ordered: No CT Interpretation Call Back: No Departure - Departure Clinical Impression: Pneumonia due to Coronavirus disease 2019, Uncontrolled hypertension, Hypokalemia, Hypomagnesemia, Elevated d-dimer Disposition: Admit Patient Condition: Serious Departure Forms: ED Discharge - Pt. Copy, Patient Portal Self Enrollment Referrals: PEYTON IGNACIO MD [Primary Care Provider] - 1-2 Weeks Home Medications: Ambulatory Orders Amlodipine Besylate 10 mg PO DAILY 08/20/13 Raloxifene HCl [Evista] 60 mg PO DAILY 08/20/13 Venlafaxine Xr [Effexor Xr] 75 mg PO DAILY 08/20/13 Atorvastatin Calcium [Lipitor] 40 mg PO DAILY 12/28/18 Famotidine [Pepcid] 20 mg PO DAILY 12/28/18 Valsartan-Hydrochlorothiazide [Valsartan/Hydrochlorothia 320-12.5 mg] 1 tab PO DAILY 12/29/18 Albuterol Sulfate Nebs [Proventil Nebs] 2.5 mg INH Q4H PRN #120 vial 12/30/18 Azithromycin [Zithromax Z-Rom] 250 mg PO DAILY #1 tab 12/30/18 Cefdinir [Omnicef] 300 mg PO BID #12 cap 12/30/18 Oseltamivir Capsule [Tamiflu] 75 mg PO DAILY #6 cap 12/30/18 Prednisone See Taper PO DAILY #30 tab 12/30/18 Promethazine W/Codeine Syr [Phenergan With Codeine Syrup] 5 ml PO Q4H PRN #4 oz 12/30/18 guaiFENesin ER TAB [Mucinex Tab] 600 mg PO BID tab 12/30/18 Decision To Admit - Decistion To Admit Decision to Admit Reason: Medical Nature Decision to Admit Date: 11/27/20 Decision to Admit Time: 14:49
[2020-11-27] MEDS ORDERED: ENOXAPARIN SODIUM 40 MG/0.4 ML SYG SUBCU ONE (15:12)
[2020-11-27] MEDS ORDERED: ALBUTEROL INHALER 64 PUFF/8GM INH PRN (17:10)
[2020-11-27] MEDS ORDERED: SODIUM CHLORIDE 0.9% (FLUSH) 10 ML SYG IV PRN (17:11)
[2020-11-27] MEDS ORDERED: ACETAMINOPHEN 325 MG TAB PO PRN (17:11)
[2020-11-27] MEDS ORDERED: ONDANSETRON INJ 4 MG/2 ML VIAL IV PRN (17:11)
[2020-11-27] MEDS ORDERED: IV SET AND CAP CHANGE INJ INJ SCH (17:30)
[2020-11-27] MEDS ORDERED: AZITHROMYCIN IV 500 MG VIAL IVPB ONE (17:37)
[2020-11-27] MEDS ORDERED: SODIUM CHLORIDE 0.9% 250ML 250 ML ONE (17:37)
[2020-11-27] MEDS ORDERED: cloNIDine HCL 0.1 MG TAB ONE (17:37)
[2020-11-27] MEDS: guaiFENesin ER TAB 600 MG TAB PO SCH (20:12)
[2020-11-27] MEDS: ENOXAPARIN SODIUM 40 MG/0.4 ML SYG SUBCU SCH (20:12)
[2020-11-27] MEDS: BIFIDOBACTERIUM INFANTIS 4 MG CAP PO SCH (20:12)
[2020-11-27] MEDS: SODIUM CHLORIDE 0.9% (FLUSH) 10 ML SYG IV SCH (20:13)
[2020-11-27] MEDS: ALBUTEROL INHALER 64 PUFF/8GM INH SCH (20:35)
[2020-11-28] MEDS ORDERED: POTASSIUM CHLORIDE 20 MEQ TAB PO ONE (00:42)
[2020-11-28] MEDS ORDERED: SODIUM CHLORIDE 0.9% 250ML 250 ML ONE ×3 (03:06→07:07)
[2020-11-28] MEDS ORDERED: REMDESIVIR IV 100 MG VIAL ONE ×3 (03:07→07:06)
[2020-11-28] MEDS: PANTOPRAZOLE SODIUM IV 40 MG VIAL IV SCH (05:55)
[2020-11-28] MEDS ORDERED: amLODIPine BESYLATE 5 MG TAB ONE (07:05)
[2020-11-28] MEDS ORDERED: AZITHROMYCIN IV 500 MG VIAL IVPB ONE (07:06)
[2020-11-28] MEDS ORDERED: SODIUM CHL 0.9% 50ML MIN-BAG+ 50 ML IVPB ONE (07:06)
[2020-11-28] MEDS ORDERED: cefTRIAXone SODIUM 1 GM VIAL ONE (07:06)
[2020-11-28] MEDS ORDERED: ATORVASTATIN 20 MG TAB PO ONE (07:06)
[2020-11-28] MEDS: NON-FORMULARY MEDICATION 1 EA MIS (Atorvastatin Calcium [Lipitor] 40 MG) PO SCH (08:14)
[2020-11-28] MEDS: DEXAMETHASONE INJ 10 MG/ML VIAL IV SCH (08:14)
[2020-11-28] MEDS: VENLAFAXINE XR 75 MG CAP PO SCH (08:14)
[2020-11-28] MEDS: BIFIDOBACTERIUM INFANTIS 4 MG CAP PO SCH ×2 (08:14→20:39)
[2020-11-28] MEDS: NON-FORMULARY MEDICATION 1 EA MIS (Amlodipine Besylate [Amlodipine Besylate] 10 MG) PO SCH (08:14)
[2020-11-28] MEDS: SODIUM CHLORIDE 0.9% (FLUSH) 10 ML SYG IV SCH ×2 (08:15→20:40)
[2020-11-28] MEDS: cefTRIAXone SODIUM 1 GM in SODIUM CHL 0.9% 50ML MIN-BAG+ 50 ML IVPB SCH (08:15)
[2020-11-28] MEDS: guaiFENesin ER TAB 600 MG TAB PO SCH ×2 (08:15→20:39)
--- NOTE | 2020-11-28 08:52 | HP ---
SUPERVISING PHYSICIAN: WHITNEY ELIZALDE MD CHIEF COMPLAINT: Shortness of breath with nausea and abdomen pain. HISTORY OF PRESENT ILLNESS: This is a 75 year-old female patient who came to the Emergency Room today secondary to increased shortness of breath and nausea with abdominal pain that has been going on for several days. Her reported that her pulse oximetry was in the mid 80s. She has had increased cough as well as increased shortness of breath and it has worsened over the last few days. She also has not taken any of her medications due to her nausea and her blood pressure was quite high when she was in the Emergency Room. She was actually diagnosed with coronavirus about a week ago and was given the monoclonal antibodies. Her 02 saturation was initially 90 to 94% on room air but when exerting herself her oxygen saturation dropped to the mid 80s. Her initial vital signs showed temperature of 99.8, heart rate 76, blood pressure 213/104. She was given her routine home medications shortly after she came to the Emergency Room. Her respiratory rate was 18 to 22 and oxygen saturation was 92% at rest on room air but with exertion it dropped to about 88%. Laboratory was completed and her WBCs were 7.2 with hemoglobin of 11.8 and hematocrit 34.8. She had a left shift on her differential. Fibrinogen was 554, D-dimer 3,070. Electrolytes showed a sodium of 139, potassium 2.7, chloride 101, BUN 10, creatinine 0.71, magnesium 1.6, ferritin 325, LD 240. C-reactive protein 11.2 with BNP of 354. She has a know history of congestive heart failure. Urinalysis showed 100 of urine protein, small amount of urine bilirubin and 2 of urobilinogen. Blood cultures were drawn. Chest x-ray revealed: 1. Patchy bilateral peripheral pulmonary infiltrates. Commonly reported in imaging features of Covid-19 are present. 2 Cardiomegaly. She was given Remdesivir, azithromycin, dexamethasone in the Emergency Room. She was also given some potassium supplementation as well as some magnesium. She was also given Clonidine and I was called for hospital admission. PAST MEDICAL HISTORY: 1. Seasonal allergies. 2. Gastroesophageal reflux disease. 3. Hyperlipidemia. 4. Hypertension. 5. Esophageal strictures. 6. Obstructive sleep apnea. PAST SURGICAL HISTORY: 1. Cataract removal. 2. Bladder suspension. CURRENT MEDICATIONS: Per the EMR and awaiting verification. ALLERGIES: No known drug allergies. SOCIAL HISTORY: She is . She lives in [place]. She denies smoking, ETOH or illicit drug use. REVIEW OF SYSTEMS: GENERAL: Positive for fatigue. Negative for fever or weight changes. HEENT: Negative for sinus symptoms, ear pain, vision changes or sore throat. CHEST: Positive for coughing and shortness of breath. Negative for wheezing. CARDIAC: Negative for chest pain, palpitations, tachycardia. GI: Positive for nausea vomiting and abdominal pain. Negative for diarrhea or constipation. : Negative for hematuria, polyuria, dysuria. SKIN: Negative for lesions or rashes. NEUROLOGICAL: Positive for weakness, negative for headaches or seizures. PHYSICAL EXAMINATION: VITAL SIGNS: Temperature 96.2, heart rate 86, blood pressure 154/87, respiratory rate 18. 02 saturation 93% on room air. GENERAL: This is a 75 year-old female patient lying in her hospital bed. She is in mild respiratory distress. HEENT: Normocephalic and atraumatic. Pupils are equal and reactive. Oropharynx is clear. NECK: Supple. CHEST: Diminished breath sounds throughout. She does get tachypneic with exertion. CARDIOVASCULAR: Regular rate and rhythm. ABDOMEN: Soft, nondistended, non-tender. Bowel sounds are positive. EXTREMITIES: No cyanosis, clubbing, or edema. NEUROLOGIC: She is awake, alert, and oriented x3. Cranial nerves II through XII are grossly intact as tested. LABORATORY/FILMS: As per the history of present illness. ASSESSMENT: 1. Covid-19 pneumonitis. 2. Hypertensive urgency. 3. Hypertension. 4. Gastroesophageal reflux disease. 5. History of esophageal strictures. 6. Hyperlipidemia. PLAN: The patient has been admitted to the hospital. She has been placed on the Covid guidelines and will continue with the Remdesivir, azithromycin, Rocephin and dexamethasone. She will have Lovenox for DVT prophylaxis, a PPI for ulcer prophylaxis. Her home medications will be restarted as soon as they are verified. She will have aggressive pulmonary hygiene including albuterol both p.r.n. and scheduled. I am also going to check her labs later tonight to see if we need to give her anymore supplementation, either magnesium or potassium. We will follow and treat as needed. #[id number] [facility]
[2020-11-28] MEDS: AZITHROMYCIN IV 500 MG in SODIUM CHLORIDE 0.9% 250ML 250 ML IVPB SCH (09:02)
[2020-11-28] MEDS: ALBUTEROL INHALER 64 PUFF/8GM INH SCH ×4 (10:14→20:00)
--- NOTE | 2020-11-28 11:01 | RAD ---
EXAMINATION: Chest x-ray one view. INDICATION: Covid. COMPARISON: 11/27/2020 TECHNIQUE: Frontal radiograph chest. FINDINGS: Overlying EKG leads and wires obscure portions of the lungs. The cardiac silhouette is enlarged and stable Calcifications within the aorta. No focal consolidative process. There is no pneumothorax. Moderate degenerative changes of the shoulders and acromioclavicular joints. IMPRESSION: Stable cardiomegaly without acute pulmonary findings. Electronically signed by: Carmelo Parker MD 11/28/2020 10:59 AM [facility]
[2020-11-28] MEDS: REMDESIVIR 100 MG in SODIUM CHLORIDE 0.9% 250ML 250 ML IVPB SCH (12:21)
[2020-11-28] MEDS: NON-FORMULARY MEDICATION 1 EA MIS (Valsartan-Hydrochlorothiazide [Valsartan/Hydrochlorothi PO SCH (14:46)
[2020-11-28] MEDS ORDERED: ACETAMINOPHEN 325 MG TAB ONE (14:48)
[2020-11-28] MEDS ORDERED: cloNIDine HCL 0.1 MG TAB PO ONE (17:10)
[2020-11-28] MEDS ORDERED: SODIUM CHLORIDE 0.9% (FLUSH) 10 ML SYG ONE (19:02)
[2020-11-28] MEDS ORDERED: BIFIDOBACTERIUM INFANTIS 4 MG CAP ONE (19:02)
[2020-11-28] MEDS ORDERED: guaiFENesin ER TAB 600 MG TAB ONE (19:02)
[2020-11-28] MEDS ORDERED: ENOXAPARIN SODIUM 40 MG/0.4 ML SYG SUBCU ONE (19:02)
--- NOTE | 2020-11-28 20:16 | PN ---
SUPERVISING PHYSICIAN: Roby Buchanan M.D. DATE: 11/28/20 SUBJECTIVE: The patient has not had any more nausea. She is tolerating her diet. She did have some mild shortness of breath with exertion. She has had no chest pains. No abdominal pain. OBJECTIVE: VITAL SIGNS: Temperature 98.4, pulse 74, blood pressure 185/80, respirations 14, satting 92% on room air at rest. GENERAL: The patient is resting comfortably in no acute distress. She is alert. CHEST: Lung sounds were fairly clear, just a little diminished towards the bases. HEART: Regular rate and rhythm. ABDOMEN: Soft, non-tender. Positive bowel sounds. EXTREMITIES: Without edema. NEUROLOGIC: She is alert and oriented times three. LABORATORY: White count 4,000, hemoglobin 11.3, hematocrit 33.3, platelet count 254,000. Differential shows a left shift. Coagulation studies show D-dimer is down to 1530. Chemistries are showing an improved potassium up to 3.2, magnesium has normalized at 2.2, C reactive protein 12, TSH is 1.6. MICROBIOLOGY: Blood cultures remain negative at 24 hours. RADIOLOGY: Repeat chest x-ray this morning per radiology interpretation shows stable cardiomegaly without any pulmonary findings. ASSESSMENT: 1. Covid pneumonitis. 2. Hypertensive urgency showing better control now. 3. Hypertension, poorly controlled. 4. Gastroesophageal reflux disease with history of esophageal strictures. 5. Hyperlipidemia. PLAN: Will continue with current plan of care with Covid guidelines with Remdesivir, azithromycin, Rocephin and Decadron. She is on Lovenox for DVT prophylaxis as well as PPI for GI protection. We restarted her medications. She remains on aggressive pulmonary hygiene. Will follow her labs and x-rays as needed. Hopefully will be able to transition her to outpatient management within the next 1 to 2 days. Until then continue to monitor and treat as needed. #[id number] [facility]
[2020-11-28] MEDS: ENOXAPARIN SODIUM 40 MG/0.4 ML SYG SUBCU SCH (20:39)
[2020-11-29] MEDS ORDERED: PANTOPRAZOLE SODIUM IV 40 MG VIAL ONE (04:57)
[2020-11-29] MEDS: PANTOPRAZOLE SODIUM IV 40 MG VIAL IV SCH (05:53)
[2020-11-29] MEDS ORDERED: amLODIPine BESYLATE 5 MG TAB ONE (07:52)
[2020-11-29] MEDS ORDERED: DEXAMETHASONE INJ 10 MG/ML VIAL ONE (07:52)
[2020-11-29] MEDS ORDERED: VENLAFAXINE XR 75 MG CAP ONE (07:52)
[2020-11-29] MEDS ORDERED: guaiFENesin ER TAB 600 MG TAB ONE ×2 (07:52→20:15)
[2020-11-29] MEDS ORDERED: BIFIDOBACTERIUM INFANTIS 4 MG CAP ONE ×2 (07:52→20:15)
[2020-11-29] MEDS ORDERED: cefTRIAXone SODIUM 1 GM VIAL ONE (07:53)
[2020-11-29] MEDS ORDERED: SODIUM CHL 0.9% 50ML MIN-BAG+ 50 ML IVPB ONE (07:53)
[2020-11-29] MEDS ORDERED: AZITHROMYCIN IV 500 MG VIAL IVPB ONE (07:54)
[2020-11-29] MEDS ORDERED: SODIUM CHLORIDE 0.9% 250ML 250 ML ONE ×2 (07:54→12:53)
[2020-11-29] MEDS: ALBUTEROL INHALER 64 PUFF/8GM INH SCH ×3 (08:30→17:00)
[2020-11-29] MEDS: BIFIDOBACTERIUM INFANTIS 4 MG CAP PO SCH ×2 (09:45→20:46)
[2020-11-29] MEDS: VENLAFAXINE XR 75 MG CAP PO SCH (09:46)
[2020-11-29] MEDS: NON-FORMULARY MEDICATION 1 EA MIS (Amlodipine Besylate [Amlodipine Besylate] 10 MG) PO SCH (09:46)
[2020-11-29] MEDS: DEXAMETHASONE INJ 10 MG/ML VIAL IV SCH (09:46)
[2020-11-29] MEDS: guaiFENesin ER TAB 600 MG TAB PO SCH ×2 (09:46→20:46)
[2020-11-29] MEDS: NON-FORMULARY MEDICATION 1 EA MIS (Valsartan-Hydrochlorothiazide [Valsartan/Hydrochlorothi PO SCH (09:47)
[2020-11-29] MEDS: cefTRIAXone SODIUM 1 GM in SODIUM CHL 0.9% 50ML MIN-BAG+ 50 ML IVPB SCH (09:47)
[2020-11-29] MEDS: SODIUM CHLORIDE 0.9% (FLUSH) 10 ML SYG IV SCH ×2 (09:47→20:46)
[2020-11-29] MEDS: AZITHROMYCIN IV 500 MG in SODIUM CHLORIDE 0.9% 250ML 250 ML IVPB SCH (09:47)
[2020-11-29] MEDS ORDERED: REMDESIVIR IV 100 MG VIAL ONE (12:53)
[2020-11-29] MEDS: REMDESIVIR 100 MG in SODIUM CHLORIDE 0.9% 250ML 250 ML IVPB SCH (13:13)
[2020-11-29] MEDS: VALSARTAN 80 MG TAB PO SCH (13:13)
[2020-11-29] MEDS ORDERED: ONDANSETRON INJ 4 MG/2 ML VIAL ONE (14:46)
[2020-11-29] MEDS: NON-FORMULARY MEDICATION 1 EA MIS (Atorvastatin Calcium [Lipitor] 40 MG) PO SCH (15:13)
--- NOTE | 2020-11-29 17:25 | PN ---
SUPERVISING PHYSICIAN: Roby Buchanan M.D. DATE: 11/29/20 SUBJECTIVE: The patient has had a little bit of nausea today. She gets a little bit short of breath with exertion. She has not had any actual emesis. No diarrhea. No actual abdominal pains. OBJECTIVE: VITAL SIGNS: Temperature 98.1, pulse 72, blood pressure 156/84, respirations 16, showing 94% saturation on room air at rest. GENERAL: The patient is resting comfortably in no acute distress. She is alert. CHEST: Lung sounds were fairly clear, just a little diminished towards the bases. HEART: Regular rate and rhythm. ABDOMEN: Soft, non-tender. Positive bowel sounds. EXTREMITIES: Without edema. NEUROLOGIC: She is alert and oriented times three. LABORATORY: White count 10,500, [id number], hematocrit 32.3, platelet count 314,000. Differential does show a left shift. Coagulation studies showed D- dimer is down to 1435. Chemistry is showing normal electrolytes, creatinine 0.72, C reactive protein is down to 5.0. MICROBIOLOGY: Blood cultures remain negative at 48 hours. RADIOLOGY: No repeat chest x-ray today. ASSESSMENT: 1. Covid pneumonitis. 2. Hypertensive urgency, resolved and controlled. 3. Hypertension, controlled now on Valsartan. 4. Gastroesophageal reflux disease with history of esophageal strictures. 5. Hyperlipidemia. PLAN: Will continue current care plan treatments and guidelines regarding Covid treatment with Remdesivir, azithromycin, Rocephin and Decadron. She is on Lovenox for DVT prophylaxis. She was restarted on all her medications, including her Valsartan today. This should help her blood pressure. Will continue to monitor closely. She remains on aggressive pulmonary hygiene. Will follow her labs and x-rays as needed. Hopefully will be able to transition her to outpatient management by tomorrow. Until then continue to monitor and treat as needed. #[id number] [facility]
[2020-11-29] MEDS ORDERED: ATORVASTATIN 20 MG TAB PO ONE (20:16)
[2020-11-29] MEDS ORDERED: ENOXAPARIN SODIUM 40 MG/0.4 ML SYG SUBCU ONE (20:16)
[2020-11-29] MEDS ORDERED: SODIUM CHLORIDE 0.9% (FLUSH) 10 ML SYG ONE (20:16)
[2020-11-29] MEDS: ENOXAPARIN SODIUM 40 MG/0.4 ML SYG SUBCU SCH (20:45)
[2020-11-29] MEDS ORDERED: NON-FORMULARY MEDICATION 1 EA MIS (Atorvastatin Calcium [Lipitor] 40 MG) PO SCH (21:00)
[2020-11-30] MEDS ORDERED: PANTOPRAZOLE SODIUM IV 40 MG VIAL ONE (04:03)
[2020-11-30] MEDS: PANTOPRAZOLE SODIUM IV 40 MG VIAL IV SCH (05:33)
[2020-11-30] MEDS ORDERED: VALSARTAN 80 MG TAB ONE (06:05)
[2020-11-30] MEDS: VALSARTAN 80 MG TAB PO SCH ×2 (06:07→09:25)
--- NOTE | 2020-11-30 06:17 | RAD ---
EXAM: XR Chest, 1 View CLINICAL HISTORY: The patient is 75 years old and is Female; COVID TECHNIQUE: Frontal view of the chest. COMPARISON: Chest x-ray 11/28/2020. FINDINGS: Lungs: Diffuse interstitial and airspace opacities bilaterally, similar to prior. Left hemidiaphragm is obscured which may indicate left lower lobe consolidation or atelectasis. Pleural space: Unremarkable. No pneumothorax. Heart: Unremarkable. Mediastinum: Unremarkable. Bones/joints: Unremarkable. IMPRESSION: Diffuse interstitial and airspace opacities bilaterally, similar to prior. Left hemidiaphragm is obscured which may indicate left lower lobe consolidation or atelectasis. Electronically signed by: Geovani Greenberg MD 11/30/2020 6:16 AM [employer]
[2020-11-30] MEDS ORDERED: DEXAMETHASONE INJ 10 MG/ML VIAL ONE (08:00)
[2020-11-30] MEDS ORDERED: guaiFENesin ER TAB 600 MG TAB ONE (08:01)
[2020-11-30] MEDS ORDERED: SODIUM CHLORIDE 0.9% 250ML 250 ML ONE (08:01)
[2020-11-30] MEDS ORDERED: AZITHROMYCIN IV 500 MG VIAL IVPB ONE (08:01)
[2020-11-30] MEDS ORDERED: VENLAFAXINE XR 75 MG CAP ONE (08:01)
[2020-11-30] MEDS ORDERED: cefTRIAXone SODIUM 1 GM VIAL ONE (08:01)
[2020-11-30] MEDS ORDERED: amLODIPine BESYLATE 5 MG TAB ONE (08:01)
[2020-11-30] MEDS ORDERED: BIFIDOBACTERIUM INFANTIS 4 MG CAP ONE (08:01)
[2020-11-30] MEDS ORDERED: SODIUM CHLORIDE 0.9% (FLUSH) 10 ML SYG ONE (08:02)
[2020-11-30] MEDS ORDERED: SODIUM CHL 0.9% 50ML MIN-BAG+ 50 ML IVPB ONE (08:02)
[2020-11-30] MEDS ORDERED: amLODIPine BESYLATE 5 MG TAB PO SCH (09:15)
[2020-11-30] MEDS ORDERED: hydroCHLOROthiazide 12.5 MG CAP PO SCH (09:15)
[2020-11-30] MEDS: cefTRIAXone SODIUM 1 GM in SODIUM CHL 0.9% 50ML MIN-BAG+ 50 ML IVPB SCH (09:18)
[2020-11-30] MEDS: VENLAFAXINE XR 75 MG CAP PO SCH (09:18)
[2020-11-30] MEDS: BIFIDOBACTERIUM INFANTIS 4 MG CAP PO SCH (09:18)
[2020-11-30] MEDS: guaiFENesin ER TAB 600 MG TAB PO SCH (09:18)
[2020-11-30] MEDS: SODIUM CHLORIDE 0.9% (FLUSH) 10 ML SYG IV SCH (09:19)
[2020-11-30] MEDS: DEXAMETHASONE INJ 10 MG/ML VIAL IV SCH (09:19)
[2020-11-30] MEDS: AZITHROMYCIN IV 500 MG in SODIUM CHLORIDE 0.9% 250ML 250 ML IVPB SCH (09:19)
[2020-11-30] MEDS: ALBUTEROL INHALER 64 PUFF/8GM INH SCH ×2 (09:55→13:35)
[2020-11-30 15:21] VITALS: O2SAT 94
[2020-11-30 15:43] VITALS: BP 162/74; TEMP 98.8
[2020-11-30] MEDS ORDERED: ATORVASTATIN 20 MG TAB PO SCH (21:00)
[2020-12-01] MEDS ORDERED: PANTOPRAZOLE SODIUM TAB 40 MG PO SCH (06:30)
--- NOTE | 2020-12-10 09:41 | DS ---
SUPERVISING PHYSICIAN: Alex Bennett MD ADMISSION DIAGNOSIS: 1. COVID-19 pneumonitis. 2. Hypertensive urgency. 3. Hypertension. 4. Gastroesophageal reflux disease. 5. History of esophageal strictures. 6. Hyperlipidemia. DISCHARGE DIAGNOSIS: 1. COVID pneumonitis. 2. Hypertensive urgency, resolved and controlled. 3. Hypertension, controlled now on valsartan. 4. Gastroesophageal reflux disease with history of esophageal strictures. 5. Hyperlipidemia. REASON FOR HOSPITALIZATION: This is a 75 year-old female patient who came to the Emergency Room today secondary to increased shortness of breath and nausea with abdominal pain that has been going on for several days. Her reported that her pulse oximetry was in the mid 80s. She has had increased cough as well as increased shortness of breath and it has worsened over the last few days. She also has not taken any of her medications due to her nausea and her blood pressure was quite high when she was in the Emergency Room. She was actually diagnosed with coronavirus about a week ago and was given the monoclonal antibodies. Her 02 saturation was initially 90 to 94% on room air but when exerting herself her oxygen saturation dropped to the mid 80s. Her initial vital signs showed temperature of 99.8, heart rate 76, blood pressure 213/104. She was given her routine home medications shortly after she came to the Emergency Room. Her respiratory rate was 18 to 22 and oxygen saturation was 92% at rest on room air but with exertion it dropped to about 88%. Laboratory was completed and her WBCs were 7.2 with hemoglobin of 11.8 and hematocrit 34.8. She had a left shift on her differential. Fibrinogen was 554, D-dimer 3,070. Electrolytes showed a sodium of 139, potassium 2.7, chloride 101, BUN 10, creatinine 0.71, magnesium 1.6, ferritin 325, LD 240. C-reactive protein 11.2 with BNP of 354. She has a know history of congestive heart failure. Urinalysis showed 100 of urine protein, small amount of urine bilirubin and 2 of urobilinogen. Blood cultures were drawn. LABORATORY: White count 10,500 at discharge. Hemoglobin stable at 11.0, hematocrit 32.3, platelet count 314,000. Differential does show a left shift. Coagulation studies showed D-dimer 1450. Chemistries on discharge showed normal electrolytes. Creatinine 0.72. Magnesium and calcium normal. C-reactive protein down to 5. Troponin 0.03. Urinalysis showed a small amount of bilirubin, 100 protein, 2.0 urobilinogen. Otherwise within normal limits. RADIOLOGY: EKG showed normal sinus rhythm with no ST or T-wave changes to indicate acute ischemia. Chest x-ray on discharge per radiologic interpretation of single-view chest showed diffuse interstitial airspace opacities bilaterally, similar to previous results. Please see those reports for details. HOSPITAL COURSE: Ms. Carver was admitted for treatment of COVID pneumonitis. She was started on treatment protocol with azithromycin, Rocephin, Decadron, albuterol, Lovenox and remdesivir. She did show good clinical improvement. On the day of discharge, temperature was 98.8, pulse 70, blood pressure 160/74, respirations 18, oxygen saturation 94% on nasal cannula at rest. Oxygen at home was made available for nasal cannula as her ambulation study on the morning of discharge showed saturation of 86% during ambulation, 95% on 2 liters nasal cannula FiO2 at 3 minutes of ambulation and rest. At 5 minutes, she was saturating 93% on 2 liters nasal cannula. PLAN: Ms. Carver was discharged to followup with Dr. Nelson on 12/02/20 at 9:30 AM via telemedicine. She is to wear oxygen as instructed. She is to resume home medications as instructed and take medications prescribed as listed below. She was instructed to return to the Emergency Room if she had any concerning symptoms. She was to resume her usual diet and increase activity as tolerated. She is to wear oxygen as tolerated and as instructed. Medications prescribed on discharge include: 1. Align. 2. Decadron 6 mg daily for 6 days. 3. Cefdinir 300 mg twice daily, #12, no refills. 4. Albuterol inhaler as needed, 2 puffs q.4h. DISPOSITION: The patient is discharged home. CONDITION ON DISCHARGE: Stable and improved. #[id number] [facility]
== END 2020-11-30 14:35 | disposition home or self-care (01) | DRG 177 ==
LOC: ER 12:43 → INTOOBSV 16:09 → OBSVTOIN 16:09 → MS 16:09 → UNDOADMOB 16:09 → OBSVTOIN 16:10 → MS 16:10 → UNDODISIN 11-30 14:35
PROVIDERS: ADMIT Nurse Practitioner Acute Care; ATTEND Nurse Practitioner Family
PROC: XW033E5 Introduction of Remdesivir Anti-infective into Peripheral Vein, Percutaneous Approach, New Technology Group 5 (ICD-10-PCS; principal; 2020-11-27)
DX: U07.1 COVID-19 (principal); J12.82 Pneumonia due to coronavirus disease 2019; I10 Essential (primary) hypertension; K21.9 Gastro-esophageal reflux disease without esophagitis; E78.5 Hyperlipidemia, unspecified; I16.0 Hypertensive urgency; E87.6 Hypokalemia; E83.42 Hypomagnesemia